=== PATIENT | female | born 1980 | race Caucasian/White ===

== ENCOUNTER 2016-04-13 15:49 | Emergency (ER) | payer BC ==
[2016-04-13] MEDS ORDERED: NORMAL SALINE 10 ML SYRINGE FLUSH IVP PRN (16:11)
[2016-04-13] MEDS ORDERED: ONDANSETRON 4 MG/2 ML VIAL IVP ONE (16:11)
[2016-04-13] MEDS ORDERED: MORPHINE SULFATE 2 MG/1 ML IV ONE (16:11)
[2016-04-13] MEDS ORDERED: Sodium Chloride 0.9% 1,000 ML PRIMARY IV ONE (16:11)
[2016-04-13 16:14] VITALS: TEMP 98
--- NOTE | 2016-04-13 17:01 | PDOC ---
Abdomen/Flank HPI - General Chief Complaint: Abdomen Pain Stated Complaint: R Lower ABD Date Seen by Provider: 04/13/16 Time Seen by Provider: 15:55 Source: POSITIVE: Patient Exam Limitations: POSITIVE: No limitations Nurse's Notes Reviewed & Considered: Yes - History of Present Illness Initial Comments: The patient is a 35-year-old female who presents to the emergency department with right lower quadrant abdominal pain. She states that she had onset of sharp right lower quadrant pain approximately 2 hours ago. She states that she was sitting down in a meeting at onset of pain. This pain has gradually intensified. She has associated nausea however has not had any emesis. She denies any recent urinary symptoms. She completed her menstrual cycle a couple of days ago. She denies any recent illness or trauma. She has had 2 previous C -sections and tubal ligation, no abdominal surgeries otherwise. She states she has some slight radiation of the pain towards her back. She denies any previous history of ovarian cysts. - Patient Home Medications Home Medications: Home Medications Propranolol HCl 10 mg PO TID #30 tab 06/19/15 Sertraline HCl 1 tab PO DAILY #30 tab 07/17/15 - Patient Allergies Allergies/Adverse Reactions: Allergies Allergy/AdvReac Type Severity Reaction Status Date / Time bee stings Allergy Mild SWELLING Uncoded 04/13/16 15:54 Past Medical History - heen HEENT History: Denies History Cardiovascular History: Denies History Additional Cardiovasular History: induced htn Respiratory History: Denies History Gastrointestinal History: Denies History Genitourinary History: Denies History Endocrine History: Denies History Musculoskeletal History: Denies History Prosthesis or Implant: No Neurological History: Denies History Blood Disorders: [place] Additional Blood Disorders History: diagnosed in 1990, pt was retested in 2010 and test was negative Psychiatric History: Denies History History of Sexually Transmitted Diseases: No Female Reproductive History: Denies History LMP: 04/05/16 Obstetrical History: Delivery Cancer History: Denies History In Past Year Been Physically Harmed or Verbally Threatened: No History of MDRO: No History of Other Communicable Diseases: No Tobacco Use: Never Smoker Alcohol Use: Rarely Substance Use Type: None Previous Surgical History: Yes Type / Date of Surgery: X 2 Anesthesia Reactions: No Malignant Hyperthermia: No Significant Family History: COPD, Diabetes, Heart disease, Hypertension Past Medical History Reviewed: Reviewed - No Changes ROS - Limitations ROS Limitations: No Limitations Constitution: DENIES: Chills, Fever Cardiovascular: REPORTS: Denies Cardiac Symptoms Respiratory: REPORTS: Denies Resp Symptoms Neurological: REPORTS: Denies Neuro Symptoms Gastrointestinal: REPORTS: Abdominal Pain, Nausea. DENIES: Vomitting, Diarrhea , Black Stools, Bloody Stools Endocrine: REPORTS: Denies Symptoms Musculoskeletal: REPORTS: Denies MS Symptoms Genitourinary: REPORTS: Denies Symptoms Eyes: REPORTS: Denies Symptoms ENT: REPORTS: Denies Symptoms Skin: DENIES: Rash Abdominal/Flank Pain PE - General Appearance General Appearance: POSITIVE: Alert, Cooperative, No Acute Distress, Other (She does appear to be in pain on arrival.) - HEENT HEENT: POSITIVE: Head Inspection Nml - Neck Neck: POSITIVE: Normal Inspection - Respiratory Respiratory: POSITIVE: No Respiratory Distress, Breath Sounds Normal - Cardiovascular Cardiovascular: POSITIVE: Regular Rate and Rhythm, Heart Sounds Normal - Abdomen Abdomen: Soft: (All Quadrants), Normal Bowel Sounds: (All Quadrants), No Distention: (All Quadrants) Additional Abdominal Details: The patient has significant tenderness to the right lower quadrant even to very light palpation with some localized rebound, no palpable mass, the left side of her abdomen is nontender with no rebound tenderness, some mild right-sided CVA tenderness. - Skin Skin: POSITIVE: Intact, No Rash - Extremities Extremity: Normal ROM: (All Extremities), Normal Inspection: (All Extremities) - Neurological Neurological: POSITIVE: Oriented X3, Motor Normal, Sensation Normal Abdomen Progress - Results Reviewed by me Xrays/CTs/US Reviewed by me: Yes Discussed with Radiologist: Yes Radiology Findings: CT the abdomen and pelvis reveals a large amount of stool in the right colon, no other acute findings per radiologist. Lab Results Reviewed: Yes Lab Results:: Laboratory Results 04/13/16 04/13/16 Range/Units 16:54 17:15 WBC 8.07 (4.8-10.8) 10^3/uL RBC 4.47 (4.20-5.40) 10^6/uL Hgb 13.6 (12.0-16.0) g/dL Hct 38.9 (37.0-47.0) % MCV 87.0 (81-99) FL MCH 30.4 (27-31) PG MCHC 35.0 (33-37) g/dL RDW Std Deviation 38.8 L (39-50) fL RDW Coeff of Carlos 12.3 (11.5-14.5) % Plt Count 234 (140-350) 10*3/uL MPV 10.5 (7.4-12.2) FL Immature Gran % (Auto) 0.1 (0-5) % Neut % (Auto) 70.1 (50-80) % Lymph % (Auto) 21.4 (10-50) % [place] % (Auto) 7.2 (5-15) % Eos % (Auto) 1.0 (0-8) % Baso % (Auto) 0.2 (0-1) % Immature Gran # (Auto) 0.01 10*3/UL Neut # (Auto) 5.65 10*3/UL Lymph # (Auto) 1.73 10*3/uL [place] # (Auto) 0.58 (0.3-0.8) 10*3/UL Eos # (Auto) 0.08 10*3/UL Baso # (Auto) 0.02 10*3/UL WBC Morphology Comment Normal morphology (NORM) Plt Morphology Comment Normal morphology (NORM) RBC Morph Comment Normal morphology (NORM) Sodium 139 (135-145) meq/L Potassium 4.1 (3.8-5.2) meq/L Chloride 105 (98-112) meq/L Carbon Dioxide 26 (23-33) meq/L Anion Gap 8 (5-20) BUN 15 (7-22) mg/dL Creatinine 0.5 (0.50-1.20) mg/dL Estimated GFR > 60 (>60 ml/min/1.73m(2)) BUN/Creatinine Ratio 30.00 H (6-20) Glucose 86 (78-110) mg/dL Calculated Osmolality 287.0 (267-292) mOsm/kg Calcium 8.8 (8.7-10.7) mg/dL Total Bilirubin 0.6 (0.3-1.2) mg/dL AST 20 (8-39) IU/L ALT 29 (9-52) IU/L Alkaline Phosphatase 70 (38-126) IU/L C-Reactive Protein 0 (0.0-0.9) mg/dL Total Protein 7.1 (6.1-8.0) g/dL Albumin 4.4 (3.5-4.8) g/dL Globulin 2.7 (2.50-4.10) g/dL Albumin/Globulin Ratio 1.60 (1.3-2.0) mg/g Amylase 69 (30-110) U/L Lipase 148 (23-300) IU/L Serum HCG, Qual Negative Ur Collection Type Voided specimen Urine Color Yellow Urine Clarity Clear (CLEAR) Urine pH 5.5 (5.0-8.5) Ur Specific [place] <=1.005 (1.005-1.030) Urine Protein Negative (NEG) mg/dl Urine Glucose (UA) Negative (NEG) mg/dL Urine Ketones Negative (NEG) Urine Occult Blood Negative (NEG) Urine Nitrate Negative (NEG) Urine Bilirubin Negative (NEG) Urine Urobilinogen 0.2 (0.2) EU/dL Ur Leukocyte Esterase Negative (NEG) Ur Culture Indicated? Culture not set - Patient's Progress MDM / ED Course: An IV was established and she received morphine 2 mg and Zofran 4 mg IV for pain. She did have some pain relief with the morphine however did cause significant nausea. She received a dose of fentanyl 50 g IV. Urinalysis and blood work are all normal. Her CT reveals a large amount of stool in the right colon in the area where she is having pain. There was no other acute findings per radiologist. The patient is still having pain which she rates about a 5 or 6 out of 10. Treatment options were discussed including admission to the hospital for observation. She was advised that the stool in the right colon may be the cause of her pain although it is possible she could have an early appendicitis or some other etiology as well. The patient preferred to try to go home. She was given a bottle of magnesium citrate and advised to push fluids. She is advised to return to the emergency room if she develops any worsening in pain, fever, nausea vomiting, any worsening or change in symptoms. She is also advised to follow-up with the emergency room if continued pain tomorrow for reevaluation. - Consult Counseled: POSITIVE: Patient, Family, RE: Lab Results, RE: Radiology Results, RE : DX, RE: Need for F/U Patient Care Time - Estimated PCT Patient Care Time (In Minutes): 30 Vital Signs - Recent Vital Signs Vital Signs: Vital Signs (Last 8 hours) Temp Pulse Pulse Resp BP BP Pulse Ox 04/13/16 19:12 89 16 127/79 95 04/13/16 15:51 98 F 89 20 131/85 97 - VS Reviewed Vital Signs Reviewed: Yes Discharge Clinical Impression: Abdominal pain, Constipation Condition: Stable Patient Instructions Given at Discharge: Constipation (ED), Acute Abdominal Pain (ED) Additional Instructions: Your blood work and urinalysis was all normal at this time. The CAT scan does show a large amount of stool in the right side of the colon in the area where you are experiencing pain. There was no evidence of appendicitis, ovarian cyst , kidney stone or other explanation for your current pain. It is possible however that she could have an early appendicitis or other condition not identified on the current scan. Because there is stool in the right side of the colon we will try alleviating this with magnesium citrate. Take one half bottle upon getting home and repeat the other half if no results in 2-3 hours. If however your pain intensifies or you start to develop fever or any other new or worsening symptoms I would recommend returning to the emergency room for reevaluation. In addition if you have continued pain of any kind tomorrow I would recommend returning to the emergency room for reevaluation. Follow Up With: CHUCK LYON [Primary Care Provider] -
[2016-04-13 17:04] LABS: BILIRUBIN,URINE NEGATIVE (NEG); CLARITY,URINE CLEAR (CLEAR); GLUCOSE, URINE (UA) NEGATIVE (NEG); LEUKOCYTE ESTERASE ,URINE NEGATIVE (NEG); NITRATE,URINE NEGATIVE (NEG); OCCULT BLOOD,URINE NEGATIVE (NEG); PH,URINE 5.5 (5.0-8.5); PROTEIN,URINE NEGATIVE (NEG); UROBILINOGEN,URINE 0.2 EU/dL (0.2)
[2016-04-13 17:05] LABS: URINE SAMPLE TYPE VOIDED SPECIMEN
[2016-04-13 17:17] LABS: BASOPHILS # (AUTO) 0.02 10*3/UL; BASOPHILS % (AUTO) 0.2 % (0-1); HEMATOCRIT 38.9 % (37.0-47.0); HEMOGLOBIN 13.6 g/dL (12.0-16.0); IMM GRAN % (AUTO) 0.1 % (0-5); IMM GRAN# (AUTO) 0.01 10*3/UL; LYMPHOCYTES # (AUTO) 1.73 10*3/uL; LYMPHOCYTES % (AUTO) 21.4 % (10-50); MEAN CORPUSCULAR HEMOGLOBIN 30.4 PG (27-31); MEAN PLATELET VOLUME 10.5 FL (7.4-12.2); MONOCYTES # (AUTO) 0.58 10*3/UL (0.3-0.8); MONOCYTES % (AUTO) 7.2 % (5-15); NEUTROPHILS # (AUTO) 5.65 10*3/UL; NEUTROPHILS % (AUTO) 70.1 % (50-80); RDW COEFFICIENT OF VARIATION 12.3 % (11.5-14.5); RED BLOOD COUNT 4.47 10^6/uL (4.20-5.40); WHITE BLOOD COUNT 8.07 10^3/uL (4.8-10.8)
[2016-04-13 17:27] LABS: PLATELET MORPHOLOGY COMMENT NORMAL MORPHOLOGY (NORM)
[2016-04-13] MEDS ORDERED: fentaNYL Inj 100 MCG/2 ML VIAL IVP ONE (17:36)
[2016-04-13 18:09] LABS: BILIRUBIN,TOTAL 0.6 mg/dL (0.3-1.2); BLOOD UREA NITROGEN 15 mg/dL (7-22); CALCIUM 8.8 mg/dL (8.7-10.7); CHLORIDE 105 meq/L (98-112); CREATININE 0.5 mg/dL (0.50-1.20); EST GLOMERULAR FILTRATION > 60 (>60 ml/min/1.73m(2)); GLUCOSE 86 mg/dL (78-110); POTASSIUM 4.1 meq/L (3.8-5.2); SODIUM 139 meq/L (135-145)
[2016-04-13 18:10] LABS: AMYLASE 69 U/L (30-110); ASPARTATE AMINO TRANSFERASE 20 IU/L (8-39); TOTAL PROTEIN 7.1 g/dL (6.1-8.0)
[2016-04-13 18:29] LABS: C-REACTIVE PROTEIN 0 mg/dL (0.0-0.9)
--- NOTE | 2016-04-13 18:31 | DI ---
CT ABD W/CN AND PELVIS W/CN,04/13/2016 4:12 PM: Clinical History: Abdominal pain. Previous Exam: None at this facility. Findings: Multiple helically acquired CT images are obtained through the abdomen and pelvis with IV contrast. The urinary bladder is unremarkable. There is moderate stool throughout the colon. Postsurgical knox es are seen consistent with bilateral tubal ligation. The appendix is normal. There is no free air nor free fluid. The liver, gallbladder, spleen, pancreas, adrenals and kidneys are unremarkable. There is no mesenter ic or retroperitoneal lymphadenopathy. The urinary bladder is also unremarkable. The lung bases are clear. Impression: 1. No acute intra-abdominal pathology. 2. Large amount of dried stool throughout the right colon.
[2016-04-13] MEDS ORDERED: MAGNESIUM CITRATE 296 ML SOLUTION PO ONE ×2 (18:58→19:01)
[2016-04-13 19:24] VITALS: RESP 16
== END 2016-04-13 19:12 | disposition home or self-care (01) ==
LOC: ER 15:49
DX: K59.00 Constipation, unspecified (principal); R10.31 Right lower quadrant pain; R11.0 Nausea
CPT/HCPCS: 74177; 80053; 81003; 82150; 83690; 84703; 85025; 86140; 96374; 96375; 99283 ×2; J3010; J2270; J2405; J7030